=== PATIENT | male | born 2000 | race Two or more races ===

== ENCOUNTER 2021-09-29 21:09 | Emergency (ER) | payer SELFPAY ==
[2021-09-29 21:37] VITALS: BP 134/84; PULSE 115; RESP 20; TEMP 37.9; O2SAT 100; BMI 36.8
[2021-09-29 22:01] LABS: MANUAL DIFF FLAG NO
[2021-09-29 22:05] LABS: Basophils Percent Auto 0.2 % (0-2); Eosinophils Percent Auto 0.1 % (0-4); Hematocrit 43.9 % (42.0-52.0); Hemoglobin 15.3 g/dl (14.0-18.0); Imm Gran Abs Auto 0.07 X10*3/uL (0.00-0.03); Imm Gran Pct Auto 0.5 % (0.0-0.4); Lymphocytes Absolute Auto 0.7 X10*3/uL (1.2-4.9); Mean Corpuscular HGB Conc 34.9 g/dl (31.0-36.0); Mean Corpuscular Volume 83.3 fL (80.0-98.0); Mean Platelet Volume 10.4 fL (9.4-12.4); Monocytes Absolute Auto 0.9 X10*3/uL (0.1-1.2); Monocytes Percent Auto 5.8 % (2-11); Neutrophils Absolute Auto 12.8 x10*3/uL (2.0-8.3); Neutrophils Percent Auto 88.4 % (45-73); Platelet Count 242 X10*3/uL (160-400); Red Blood Count 5.27 X10*6/uL (4.60-5.80); Red Cell Distribution Width 12.3 % (11.0-16.0); White Blood Count 14.5 X10*3/uL (4.8-10.8)
[2021-09-29 22:18] LABS: COVID-19 Test Negative (Negative); IDNOW Serial# 16C4AD1C
[2021-09-29 22:19] LABS: Alanine Aminotransferase 30 U/L (0-40); Albumin Level 4.6 g/dL (3.5-5.0); Alkaline Phosphatase 109 U/L (39-117); Anion Gap 17 (12-20); Aspartate Amino Transferase 27 U/L (5-37); Bilirubin Total 0.9 mg/dL (0.0-1.0); Blood Urea Nitrogen 10 mg/dL (9-16); Calcium 9.6 mg/dL (8.4-10.2); Carbon Dioxide 22 mmol/L (22-29); Chloride 100 mmol/L (96-108); Creatinine Clr Calc Pharmacy 145.2; Estimated Glomerular Filt Rate > 60; Glucose Random 109 mg/dL (60-115); Potassium 3.9 mmol/L (3.3-5.1); Sodium 135 mmol/L (135-145); Total Protein 8.2 g/dL (6.5-8.0)
--- NOTE | 2021-09-30 01:07 | ED.SOB ---
HPI - SOB/Dyspnea General Chief Complaint: Dyspnea Stated Complaint: sob dizziness Time Seen by Provider: 09/30/21 01:06 Source: patient Mode of arrival: ambulatory Limitations: no limitations History of Present Illness HPI Narrative: Patient already been vaccinated against COVID complaining of shortness of breath body ache nausea congestion for last 24 hours no other family member sick patient having 100% at room air temperature 100.3 degrees Related Data Allergies Allergy/AdvReac Type Severity Reaction Status Date / Time No Known Allergies Allergy Verified 09/30/21 01:23 Review of Systems Review of Systems: Yes all other systems are reviewed and are negative [facility] Social History Social History Advance Directives: No Advance Directives Information Provided: No Physical Exam Vital Signs: Vital Signs: Last Vital Signs Temp 100.3 F 09/29/21 21:37 Pulse 97 09/30/21 02:11 Resp 16 09/30/21 02:11 BP 135/60 09/30/21 02:11 Pulse Ox 98 09/30/21 02:11 O2 Del Method 09/30/21 02:11 BMI result Body Mass Index 36.8 Appearance: Alert. Oriented X3. No acute distress. Eyes: PERRLA, No Nystagmus ENT: Pharynx normal. Oral Mucosa moist Neck: Normal inspection. Neck supple. CVS: Normal heart rate and rhythm. Pulses normal. Respiratory: No respiratory distress. Equal air entry bilateral, no wheezing/rales/rhonchi Abdomen: Soft and nontender. Bowel sounds are present, no mass palpable, no CVA tenderness Skin: Skin warm and dry. Normal skin color. Normal skin turgor. Extremities: No lower extremity edema. No calf tenderness Neuro: Oriented X 3. No motor deficit. No sensory deficit.No cerebellar signs , cranial nerves II-XII intact MDM - SOB/Dyspnea Lab Data Attestation: I reviewed the patient's lab results. Result diagrams: 09/29/21 21:54 09/29/21 21:54 Labs: Lab Results 09/29/21 09/29/21 09/29/21 Range/Units 21:54 21:54 21:54 WBC 14.5 H (4.8-10.8) X10*3/uL RBC 5.27 (4.60-5.80) X10*6/uL Hgb 15.3 (14.0-18.0) g/dl Hct 43.9 (42.0-52.0) % MCV 83.3 (80.0-98.0) fL MCH 29.0 (27.0-33.0) pg MCHC 34.9 (31.0-36.0) g/dl RDW 12.3 (11.0-16.0) % Plt Count 242 (160-400) X10*3/uL MPV 10.4 (9.4-12.4) fL Immature Gran % (Auto) 0.5 H (0.0-0.4) % Neut % (Auto) 88.4 H (45-73) % Lymph % (Auto) 5.0 L (20-40) % Elliott % (Auto) 5.8 (2-11) % Eos % (Auto) 0.1 (0-4) % Baso % (Auto) 0.2 (0-2) % Lymph # (Auto) 0.7 L (1.2-4.9) X10*3/uL Elliott # (Auto) 0.9 (0.1-1.2) X10*3/uL Eos # (Auto) 0.0 (0.0-0.4) X10*3/uL Baso # (Auto) 0.0 (0.0-0.2) X10*3/uL Abs Immat Gran (auto) 0.07 H (0.00-0.03) X10*3/uL Absolute Neuts (auto) 12.8 H (2.0-8.3) x10*3/uL Absolute Nucleated RBC 0.000 (0.0-0.012) X10*3/uL Nucleated RBC % (auto) 0.0 (0.0-0.2) /100WBC Sodium 135 (135-145) mmol/L Potassium 3.9 (3.3-5.1) mmol/L Chloride 100 (96-108) mmol/L Carbon Dioxide 22 (22-29) mmol/L Anion Gap 17 (12-20) BUN 10 (9-16) mg/dL Creatinine 1.02 (0.5-1.4) mg/dL Estim Creat Clear Calc 145.2 Estimated GFR > 60 Random Glucose 109 (60-115) mg/dL Calcium 9.6 (8.4-10.2) mg/dL Total Bilirubin 0.9 (0.0-1.0) mg/dL AST 27 (5-37) U/L ALT 30 (0-40) U/L Alkaline Phosphatase 109 (39-117) U/L Total Protein 8.2 H (6.5-8.0) g/dL Albumin 4.6 (3.5-5.0) g/dL COVID-19 ([facility]) Negative (Negative) COVID-19 Clin Com See Note Discharge Plan Discharge Clinical Impression: Cellulitis Patient Disposition: Home, Self-Care Instructions: Cellulitis (ED) Additional Instructions: Take antibiotic as prescribed Report to the ER/PCP if not better Your COVID test is negative [place] el antibi?elia seg?n lo prescrito Informar a la sonal de emergencias/PCP si no mejora Mann prueba de COVID es negativa Stand Alone Forms: Work/School Release Interventions: ED Discharge Assessment Last Done: 09/30/21 03:12 Discharge Date/Time: 09/30/21 02:15 Print Language: Indonesian
[2021-09-30] MEDS: cephALEXin 500 MG CAPSULE PO (02:10)
[2021-09-30 02:11] VITALS: BP 135/60; PULSE 97; RESP 16; O2SAT 98
--- NOTE | 2021-09-30 03:09 | PC.NURSE ---
pt a&o x 3. skin PWD. no s/s of distress at time of discharge. technical lead assisted pt via WC to vehicle. significant other at bedside at time of discharge. work note provided. discharge packet provided to pt. pt verbalized understanding of discharge summary.
== END 2021-09-30 02:15 | disposition home or self-care (01) ==
PROVIDERS: Emergency Provider Internal Medicine
DX: L03.90 Cellulitis, unspecified (principal); R06.02 Shortness of breath; R42 Dizziness and giddiness; M79.10 Myalgia, unspecified site; Z20.822 Contact with and (suspected) exposure to COVID-19; Z79.899 Other long term (current) drug therapy
CPT/HCPCS: 80053; 85025; 87635; 99283

== ENCOUNTER 2021-12-22 14:32 | Emergency (ER) | payer OTHER, SELFPAY ==
--- NOTE | ~2021-12-22 | US_ITS ---
EXAMINATION: US VENOUS ULTRASOUND WITH DOPPLER LOWER EXTREMITY, RIGHT CLINICAL INFORMATION: Right leg swelling and pain COMPARISON: None TECHNIQUE: Ultrasound of the deep veins is performed from the hip to the calf with compression sonography and color and pulse Doppler assessment. Spectral analysis with color-flow imaging is performed. FINDINGS: There is normal venous compression and respiratory variation and augmented flow. The visualized common femoral vein, superficial femoral vein, profunda femoral vein, popliteal vein, and the trifurcation region shows no evidence of deep venous thrombosis. Peroneal calf veins not seen due to habitus. There is no significant popliteal fossa cyst. Prominent lymph nodes in the right inguinal region, largest 1.4 cm in short axis, presumably reactive. If the patient's symptoms persist, followup ultrasound in 5 days 7 days might be of value to exclude proximal propagation from a non-visualized calf vein. US/US venous duplex LE RT IMPRESSION: No DVT demonstrated in the right lower extremity.
--- NOTE | 2021-12-22 14:46 | ED.GENADULT ---
HPI - General Adult General Chief complaint: General Medical <COSME [place] - Last Filed: 12/22/21 15:05> Stated complaint: cellulitis leg pain <COSME [place] - Last Filed: 12/22/21 15:05> Time Seen by Provider: 12/22/21 15:24 <COSME [place] - Last Filed: 12/22/21 15:05> History of Present Illness HPI narrative: Patient complains of right anterior lower leg pain and redness developing over the last 5 days He also complains of some right groin pain with no redness or swelling This has happened twice before over recent months, and was treated with antibiotics and it seemed to get better and then it came back same as prior episodes, he denies any precipitating injury or foreign body <COSME Ibarra Last Filed: 12/22/21 16:40> Related Data Home medications: Previous Rx's Medication Instructions Recorded cephalexin 500 mg capsule 500 mg PO QID 1 week #28 caps 09/30/21 cephalexin 500 mg capsule 500 mg PO QID 10 days #40 caps 12/22/21 doxycycline hyclate 100 mg tablet 100 mg PO BID 10 days #20 tabs 12/22/21 <COSME [place] - Last Filed: 12/22/21 15:05> Allergies/adverse reactions: Allergies Allergy/AdvReac Type Severity Reaction Status Date / Time No Known Allergies Allergy Verified 09/30/21 01:23 <COSME [place] Last Filed: 12/22/21 15:05> Review of Systems Review of Systems: Positive for red uncomfortable patch on right lower leg as well as some right groin discomfort Negatives are no fever no chills no dizziness no weakness no fainting no feeling faint no loss of appetite no cough no chest pain no abdominal pain no dysuria no difficulty walking no swelling, no other rash <COSME Ibarra Last Filed: 12/22/21 16:40> Yes all other systems are reviewed and are negative <COSME Ibarra - Last Filed: 12/22/21 16:40> PMFSH Past Medical History Source: nursing notes reviewed <COSME Ibarra Last Filed: 12/22/21 16:40> Social History Social History: Social History Advance Directives: No Advance Directives Information Provided: Yes <COSME [place] - Last Filed: 12/22/21 15:05> Physical Exam ED Vital Signs: Vital Signs - 24 hr 12/22/21 14:55 12/22/21 16:14 Temperature 99.4 F 99.4 F Pulse Rate 99 85 Respiratory Rate 18 18 Blood Pressure 116/67 135/66 Pulse Oximetry 99 100 Oxygen Delivery Method Room Air Room Air BMI result Body Mass Index 40.0 <COSME [place] - Last Filed: 12/22/21 15:05> Vital Signs - 24 hr 12/22/21 14:55 12/22/21 16:14 Temperature 99.4 F 99.4 F Pulse Rate 99 85 Respiratory Rate 18 18 Blood Pressure 116/67 135/66 Pulse Oximetry 99 100 Oxygen Delivery Method Room Air Room Air BMI result Body Mass Index 40.0 <COSME Ibarra Last Filed: 12/22/21 16:40> General appearance comfortable no acute distress The head is normocephalic atraumatic Neck is supple Respiratory no distress Extremities full range of motion x4 Right groin exam skin is normal in color there is no redness no wounds there are palpable lymph nodes mobile in the right inguinal area, there is no red stripe going up the leg Right leg exam there is an area of redness, tenderness, no significant swelling no fluctuance no blistering over the right anterior lower leg, the patch is approximately 3 cm x 4 cm The right leg has full range of motion there is no joint swelling and it is neurovascular intact distal <COSME Ibarra - Last Filed: 12/22/21 16:40> Course Course Course Narrative: RME-- 21yo M presenting to ED c/o RLE pain, erythema and swelling x today. Admits to similar symptoms in the past. Denies known tick or insect bites On exam blotchy erythema with peeling skin noted to anterior right steinberg. Very tender to palpation. +RLE swollen Venous duplex ultrasound ordered in triage <COSME [place] Last Filed: 12/22/21 15:05> RME-- 21yo M presenting to ED c/o RLE pain, erythema and swelling x today. Admits to similar symptoms in the past. Denies known tick or insect bites On exam blotchy erythema with peeling skin noted to anterior right steinberg. Very tender to palpation. +RLE swollen Venous duplex ultrasound ordered in triage Patient with repeated episodes of cellulitis, ultrasound was negative for DVT, exam there is no evidence of abscess or fluid collection, there is no red stripe up leg, but there are enlarged right inguinal lymph nodes Plan is a longer course of oral antibiotics it with doxycycline in addition to Keflex <COSME Ibarra - Last Filed: 12/22/21 16:40> Discharge Plan Discharge Clinical Impression: Cellulitis <COSME [place] Last Filed: 12/22/21 15:05> Patient Disposition: Home, Self-Care <COSME [place] Last Filed: 12/22/21 15:05> Additional Instructions: Ultrasound did not show any blood clot You have enlarged lymph nodes in the groin area as well as a skin infection in your right lower leg We are treating with antibiotics for 10 days Return any time for spreading redness, worse pain and swelling, red stripe up leg, fever, any worse condition or any concerns If not improved in 2-3 days return for a recheck <COSME [place] Last Filed: 12/22/21 15:05> Prescriptions: New cephalexin 500 mg capsule 500 mg PO QID 10 Days Qty: 40 0RF doxycycline hyclate 100 mg tablet 100 mg PO BID 10 Days Qty: 20 0RF Rx Instructions: Take with food No Action cephalexin 500 mg capsule 500 mg PO QID 7 Days Qty: 28 0RF <COSME [place] Last Filed: 12/22/21 15:05> Stand Alone Forms: Work/School Release <COSME [place] Last Filed: 12/22/21 15:05>
[2021-12-22 14:55] VITALS: BP 116/67; PULSE 99; RESP 18; TEMP 37.4; O2SAT 99; BMI 40.0
[2021-12-22 16:14] VITALS: BP 135/66; PULSE 85; RESP 18; TEMP 37.4; O2SAT 100
[2021-12-22] MEDS: cephALEXin 500 MG CAPSULE PO (16:31)
== END 2021-12-22 17:03 | disposition home or self-care (01) ==
PROVIDERS: Emergency Provider Emergency Medicine
DX: L03.115 Cellulitis of right lower limb (principal); M79.604 Pain in right leg; R60.0 Localized edema; Z79.899 Other long term (current) drug therapy
CPT/HCPCS: 93971; 99283; 99284